=== PATIENT | male | born 1975 | race Caucasian/White ===

== ENCOUNTER 2021-02-25 01:13 | Emergency (ER) | payer SELFPAY ==
[~2021-02-25] VITALS: Ht 185.4 cm; Wt 97.5 kg
[2021-02-25 01:49] VITALS: BP 135/95
--- NOTE | 2021-02-25 02:30 | ED Integumentary General ---
General Chief Complaint: Skin/Wound Problems Stated Complaint: RASH Source: patient Exam Limitations: no limitations History of Present Illness Date Seen by Provider: February 25, 2021 Time Seen by Provider: 02:12 Initial Comments Patient presents ER by private conveyance with chief complaint of a rash been going on for over a month.. He has done a course of antibiotics with no relief. 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 He is going to set up primary care with his sister's doctor in [place] where he lives. He was here and it was driving him nuts with the itching so he thought he would get it checked out. He says he had a test done for parasites because he thought maybe that is what was causing it and it came back inconclusive. It itches. No fever chills nausea vomiting. Rashes located on his forearms, hands head and face. He thought he might have parasites because he thought he saw maggots and has a feeling or sensation of movement under the skin while he tries to sleep at night. He has been cleaning his skin several times a day with 91% alcohol. Allergies and Home Medications Patient Home Medication List Home Medication List Reviewed: Yes Review of Systems Review of Systems Constitutional: No chills, No diaphoresis EENTM: No ear discharge, No ear pain Respiratory: No cough, No dyspnea on exertion Cardiovascular: No chest pain, No edema Gastrointestinal: No abdominal pain, No nausea, No vomiting Genitourinary: No discharge, No dysuria Skin: see HPI All Other Systems Reviewed Negative Unless Noted: Yes Past Ivdbieb-Wsblrv-Dsfkqk Hx Patient Social History Alcohol Use: Denies Use Smoking Status: Never a Smoker Physical Exam Vital Signs Capillary Refill : General Appearance: WD/WN, mild distress HEENT: PERRL/EOMI, pharynx normal Cardiovascular: normal peripheral pulses, regular rate, rhythm Respiratory: no respiratory distress, no accessory muscle use Neurologic/Psychiatric: alert, oriented x 3 Skin: other (Erythematous, excoriations over his hands forearms and around his ears and jawline. No exudate, induration or fluctuance.) Progress/Results/Core Measures Progress Progress Note : Time: 02:27 Progress Note Delusional parasitosis, allergic reaction, irritated skin secondary to the alcohol. Plan to have him stop using the alcohol do a short course of steroids and follow-up with primary care for further management of his symptoms. Encourage Zyrtec and/or Claritin. Departure Impression Primary Impression: Rash and nonspecific skin eruption Disposition: HOME, SELF-CARE Condition: Stable Departure-Patient Inst. Decision time for Depature: 02:28 Referrals: NO,LOCAL PHYSICIAN (PCP/Family) Primary Care Physician Patient Instructions: Skin Rash Add. Discharge Instructions: Stop using alcohol in your skin as this is caustic and will make the rash worse. You should follow-up with a primary care doctor if the rash persists as they can help you with biopsies and ultimately diagnosis of this problem. Medrol Dosepak take as directed. Keep your skin moisturized with a good skin emollient such as CeraVe, neutraDerm, Cetaphil etc. All discharge instructions reviewed with patient and/or family. Voiced understanding. Scripts Methylprednisolone (Methylprednisolone Dose Pack) 4 Mg Tab.ds.pk 4 MG PO UD for 6 Days, #21 PKG 0 Refills PER DOSE PACK INSTRUCTIONS Prov: MARIA M SHARPE 02/25/21 MARIA M SHARPE February 25, 2021 02:30
[2021-02-25] MEDS ORDERED: METH4TAB10 PO (02:31)
== END 2021-02-25 02:39 | disposition home or self-care (01) ==
LOC: EDUNIT# 01:13 → ER 01:18
DX: R21 Rash and other nonspecific skin eruption (principal)
CPT/HCPCS: 99282